=== PATIENT | female | born 1980 | race Caucasian/White ===

== ENCOUNTER 2017-05-30 10:20 | Emergency (ER) | payer BC, MEDICAID ==
--- NOTE | 2017-05-30 10:27 | EDM.PDOC ---
ED HPI GENERAL MEDICAL PROBLEM - General Chief Complaint: Chest Pain Stated Complaint: SOB Time Seen by Provider: 05/30/17 10:27 Source of Information: Reports: Patient, RN, RN Notes Reviewed History Limitations: Reports: No Limitations - History of Present Illness INITIAL COMMENTS - FREE TEXT/NARRATIVE: Arrives from home by POV with c/o of chest pain with shortness of breath and nausea that began early this morning. Pt states that she has severe anxiety with panic attacks which have been out of control recently due to new stress from a divorce, custody abel, move from out of critical access hospital to [facility], finances, and cannot get her insurance to cover her Abilify so she has been out for a long time. Pt states that she self medicates with alcohol almost daily in large quantities "more than most men can drink". She admits to depression, but denies ever feeling suicidal. She states that she has low potassium and it is slowly paralyzing her heart. Onset: Today Duration: Constant Location: Reports: Chest Quality: Reports: Ache, Pressure Severity: Severe Improves with: Reports: None Worsens with: Reports: None Associated Symptoms: Reports: No Other Symptoms Treatments [employer] SALES [employer]ATE: Reports: Other Medication(s) (Xanax) Left Mid-Sternal Chest Pain Score (Numeric/FACES): 10 - Related Data Allergies Allergy/AdvReac Type Severity Reaction Status Date / Time No Known Allergies Allergy Verified 06/24/14 17:43 Home Meds: Home Meds ALPRAZolam [Xanax] 3.5 mg PO PRN 06/24/14 [History] Fexofenadine HCl [Mucinex Allergy] 180 mg PO 06/24/14 [History] Past Medical History HEENT History: Reports: Allergic Rhinitis Psychiatric History: Reports: Addiction (Alcohol), Anxiety, Depression, Panic Attack Social & Family History - Family History Cardiac: Reports: [place] (sister in her 30s) Neurological: Reports: CVA (sister at age 22yrs) Psychiatric: Reports: Anxiety - Tobacco Use Smoking Status *Q: Current Every Day Smoker Tobacco Use Within Last Twelve Months: Cigarettes Years of Tobacco use: 1 Second Hand Smoke Exposure: No - Alcohol Use Alcohol Use History: Yes Days Per Week of Alcohol Use: 6 Days Per Week of Alcohol Use Comment: almost every day Number of Drinks Per Day: 8 Total Drinks Per Week: 48 Alcohol Use in Last Twelve Months: Yes Alcohol Use Frequency: Daily - Recreational Drug Use Recreational Drug Use: No - Living Situation & Occupation Living situation: Reports: , Alone Occupation: Employed ED ROS GENERAL - Review of Systems Review Of Systems: ROS reveals no pertinent complaints other than HPI. ED EXAM, GENERAL - Physical Exam Exam: See Below Exam Limited By: No Limitations General Appearance: Alert, WD/WN, No Apparent Distress, Anxious Eye Exam: Bilateral Eye: Normal Inspection Nose: Normal Inspection Throat/Mouth: Normal Inspection, Normal Voice, No Airway Compromise Head: Atraumatic, Normocephalic Neck: Normal Inspection, Supple, Non-Tender, Full Range of Motion Respiratory/Chest: No Respiratory Distress, Lungs Clear, Normal Breath Sounds, No Accessory Muscle Use, Chest Non-Tender Cardiovascular: Normal Peripheral Pulses, Regular Rate, Rhythm, No Edema, No Gallop, No JVD, No Murmur, No Rub GI/Abdominal: Normal Bowel Sounds, Soft, Non-Tender, No Distention, No Abnormal Bruit (Female) Exam: Deferred Rectal (Female) Exam: Deferred Back Exam: Normal Inspection Extremities: Normal Inspection, Normal Range of Motion, Non-Tender, Normal Capillary Refill, No Pedal Edema Neurological: Alert, Oriented, CN II-XII Intact, Normal Cognition, Normal Gait, No Motor/Sensory Deficits Psychiatric: Anxious, Depressed Mood, Other (denies ever having suicidal thoughts) Skin Exam: Warm, Dry, Intact, Normal Color, No Rash EKG INTERPRETATION EKG Date: 05/30/17 Rhythm: NSR [place]: Normal P-Wave: Present QRS: Normal ST-T: Normal QT: Normal Comparison: NA - No Prior EKG EKG Interpretation Comments: No acute ischemic changes. Course - Vital Signs Last Recorded V/S: Last Vital Signs Temp 36.9 C 05/30/17 12:30 Pulse 72 05/30/17 12:30 Resp 16 05/30/17 12:30 BP 110/70 05/30/17 12:30 Pulse Ox 98 05/30/17 12:30 - Orders/Labs/Meds Orders: Active Orders 24 hr Category Date Time Status EKG 12 Lead [EKG Documentation Completion] [RC] STAT Care 05/30/17 10:30 Active Chest 1V Frontal [CR] Stat Exams 05/30/17 10:27 Ordered CBC WITH AUTO DIFF [HEME] Stat Lab 05/30/17 10:27 Ordered COMPREHENSIVE METABOLIC PN,CMP [CHEM] Stat Lab 05/30/17 10:27 Ordered D Dimer [D-DIMER QUANTITATIVE] [COAG] Stat Lab 05/30/17 10:27 Ordered Nitroglycerin [Nitrostat] Med 05/30/17 10:40 Active 0.4 mg SL Q5M PRN Medication Orders Nitroglycerin (Nitrostat) 0.4 mg SL Q5M PRN PRN Reason: Chest Pain Last Admin: 05/30/17 10:55 Dose: 0.4 mg Labs: Laboratory Tests 05/30/17 05/30/17 05/30/17 Range/Units 10:42 10:42 10:42 WBC 5.5 (5.0-10.0) 10^3/uL RBC 4.18 L (4.2-5.4) 10^6/uL Hgb 13.8 D (12.0-16.0) g/dL Hct 39.3 (37.0-47.0) % MCV 94.0 (80-100) fL MCH 33.0 (27.0-34.0) pg MCHC 35.1 H (33.0-35.0) g/dL Plt Count 256 (150-450) 10^3/uL Neut % (Auto) 68.7 (42.2-75.2) % Lymph % (Auto) 22.3 (20.5-50.1) % [place] % (Auto) 7.8 (2-8) % Eos % (Auto) 0.5 L (1.0-3.0) % Baso % (Auto) 0.7 (0.0-1.0) % D-Dimer, Quantitative < 100 (0-400) ng/mL Sodium 139 (135-145) mmol/L Potassium 3.1 L (3.6-5.0) mmol/L Chloride 100 L (101-111) mmol/L Carbon Dioxide 26.0 (21.0-31.0) mmol/L Anion Gap 16.1 BUN 6 L (7-18) mg/dL Creatinine 0.6 (0.6-1.3) mg/dL Est Cr Clr Drug Dosing 132.86 mL/min Estimated GFR (MDRD) > 60 BUN/Creatinine Ratio 10.00 Glucose 92 (74-105) mg/dL Calcium 8.7 (8.4-10.2) mg/dl Magnesium 1.7 L (1.8-2.5) mg/dL Total Bilirubin 0.7 (0.2-1.0) mg/dL AST 28 (10-42) IU/L ALT 17 (10-60) IU/L Alkaline Phosphatase 78 (42-121) IU/L Troponin I < 0.02 (0.00-0.02) ng/ml Total Protein 7.0 (6.7-8.2) g/dl Albumin 3.9 (3.2-5.5) g/dl Globulin 3.1 Albumin/Globulin Ratio 1.26 Amylase 46 (28-100) U/L Lipase 23 (22-51) U/L Urine Color (YELLOW) Urine Appearance (CLEAR) Urine pH (5.0-9.0) Ur Specific [place] (1.005-1.030) Urine Protein (NEGATIVE) Urine Glucose (UA) (NEGATIVE) Urine Ketones (NEGATIVE) Urine Occult Blood (NEGATIVE) Urine Nitrite (NEGATIVE) Urine Bilirubin (NEGATIVE) Urine Urobilinogen (0.2-1.0) mg/dL Ur Leukocyte Esterase (NEGATIVE) Urine RBC /HPF Urine WBC (0-5/HPF) /HPF Ur Epithelial Cells /HPF Amorphous Sediment (0/HPF) /HPF Urine Bacteria (0-FEW/HPF) /HPF Urine Mucus /LPF Urine HCG, Qual Urine Opiates Screen (NEGATIVE) Ur Oxycodone Screen (NEGATIVE) Urine Methadone Screen (NEGATIVE) Ur Barbiturates Screen (NEGATIVE) U Tricyclic Antidepress (NEGATIVE) Ur Phencyclidine Scrn (NEGATIVE) Ur Amphetamine Screen (NEGATIVE) U Methamphetamines Scrn (NEGATIVE) Urine MDMA Screen (NEGATIVE) U Benzodiazepines Scrn (NEGATIVE) Urine Cocaine Screen (NEGATIVE) U Marijuana (THC) Screen (NEGATIVE) Ethyl Alcohol 54 mg/dL 05/30/17 05/30/17 05/30/17 Range/Units 11:50 11:50 11:50 WBC (5.0-10.0) 10^3/uL RBC (4.2-5.4) 10^6/uL Hgb (12.0-16.0) g/dL Hct (37.0-47.0) % MCV (80-100) fL MCH (27.0-34.0) pg MCHC (33.0-35.0) g/dL Plt Count (150-450) 10^3/uL Neut % (Auto) (42.2-75.2) % Lymph % (Auto) (20.5-50.1) % [place] % (Auto) (2-8) % Eos % (Auto) (1.0-3.0) % Baso % (Auto) (0.0-1.0) % D-Dimer, Quantitative (0-400) ng/mL Sodium (135-145) mmol/L Potassium (3.6-5.0) mmol/L Chloride (101-111) mmol/L Carbon Dioxide (21.0-31.0) mmol/L Anion Gap BUN (7-18) mg/dL Creatinine (0.6-1.3) mg/dL Est Cr Clr Drug Dosing mL/min Estimated GFR (MDRD) BUN/Creatinine Ratio Glucose (74-105) mg/dL Calcium (8.4-10.2) mg/dl Magnesium (1.8-2.5) mg/dL Total Bilirubin (0.2-1.0) mg/dL AST (10-42) IU/L ALT (10-60) IU/L Alkaline Phosphatase (42-121) IU/L Troponin I (0.00-0.02) ng/ml Total Protein (6.7-8.2) g/dl Albumin (3.2-5.5) g/dl Globulin Albumin/Globulin Ratio Amylase (28-100) U/L Lipase (22-51) U/L Urine Color Yellow (YELLOW) Urine Appearance Slightly cloudy (CLEAR) Urine pH 7.0 (5.0-9.0) Ur Specific [place] 1.020 (1.005-1.030) Urine Protein Negative (NEGATIVE) Urine Glucose (UA) Negative (NEGATIVE) Urine Ketones Negative (NEGATIVE) Urine Occult Blood Negative (NEGATIVE) Urine Nitrite Negative (NEGATIVE) Urine Bilirubin Negative (NEGATIVE) Urine Urobilinogen 0.2 (0.2-1.0) mg/dL Ur Leukocyte Esterase Negative (NEGATIVE) Urine RBC 0-5 /HPF Urine WBC 0-5 (0-5/HPF) /HPF Ur Epithelial Cells Few /HPF Amorphous Sediment Rare (0/HPF) /HPF Urine Bacteria Few (0-FEW/HPF) /HPF Urine Mucus Moderate H /LPF Urine HCG, Qual Negative Urine Opiates Screen Negative (NEGATIVE) Ur Oxycodone Screen Negative (NEGATIVE) Urine Methadone Screen Negative (NEGATIVE) Ur Barbiturates Screen Negative (NEGATIVE) U Tricyclic Antidepress Negative (NEGATIVE) Ur Phencyclidine Scrn Negative (NEGATIVE) Ur Amphetamine Screen Negative (NEGATIVE) U Methamphetamines Scrn Negative (NEGATIVE) Urine MDMA Screen Negative (NEGATIVE) U Benzodiazepines Scrn Positive H (NEGATIVE) Urine Cocaine Screen Negative (NEGATIVE) U Marijuana (THC) Screen Negative (NEGATIVE) Ethyl Alcohol mg/dL Meds: Medications Generic Name Dose Route Start Last Admin Trade Name Freq PRN Reason Stop Dose Admin Nitroglycerin 0.4 mg 05/30/17 10:40 05/30/17 10:55 Nitrostat SL 0.4 mg Q5M PRN Administration Chest Pain Discontinued Medications Generic Name Dose Route Start Last Admin Trade Name Freq PRN Reason Stop Dose Admin Aspirin 324 mg 05/30/17 10:29 05/30/17 10:53 Aspirin PO 05/30/17 10:30 324 mg ONETIME ONE Administration Lorazepam 1 mg 05/30/17 10:46 05/30/17 11:13 Ativan IVPUSH 05/30/17 10:47 1 mg ONETIME ONE Administration Ondansetron HCl 4 mg 05/30/17 10:40 05/30/17 10:50 Zofran IV 05/30/17 10:41 4 mg ONETIME ONE Administration - Radiology Interpretation Free Text/Narrative:: CXR: no acute process per Rad report. Departure - Departure Time of Disposition: 12:17 Disposition: Home, Self-Care 01 Condition: Good Clinical Impression: Non-cardiac chest pain, Severe anxiety with panic, Chronic alcohol abuse Depression Qualifiers: Depression Type: other depression Qualified Code(s): F32.89 - Other specified depressive episodes Instructions: Nonspecific Chest Pain, [id number], Panic Attacks, Potassium Content of Foods Referrals: PCP,None [Primary Care Provider] - Forms: ED Department Discharge Additional Instructions: Follow up with your psychiatrist at the first available appointment. Follow up Dr. Richard as soon as possible to establish local primary care. Attempt to taper and abstain from alcohol use. Eat a high potassium diet. Rx: Clonazapam 1mg - My Orders Last 24 Hours: My Active Orders 05/30/17 10:27 Chest 1V Frontal [CR] Stat CBC WITH AUTO DIFF [HEME] Stat COMPREHENSIVE METABOLIC PN,CMP [CHEM] Stat D Dimer [D-DIMER QUANTITATIVE] [COAG] Stat 05/30/17 10:30 EKG 12 Lead [EKG Documentation Completion] [RC] STAT 05/30/17 10:40 Nitroglycerin [Nitrostat] 0.4 mg SL Q5M PRN - Assessment/Plan Last 24 Hours: My Active Orders 05/30/17 10:27 Chest 1V Frontal [CR] Stat CBC WITH AUTO DIFF [HEME] Stat COMPREHENSIVE METABOLIC PN,CMP [CHEM] Stat D Dimer [D-DIMER QUANTITATIVE] [COAG] Stat 05/30/17 10:30 EKG 12 Lead [EKG Documentation Completion] [RC] STAT 05/30/17 10:40 Nitroglycerin [Nitrostat] 0.4 mg SL Q5M PRN
[2017-05-30] MEDS ORDERED: Aspirin 81 MG Tab.Chew PO ONE (10:29)
[2017-05-30] MEDS ORDERED: Ondansetron 4 MG/2 ML SDV IV ONE (10:40)
[2017-05-30] MEDS ORDERED: Nitroglycerin 0.4 MG Tab.SL SL PRN (10:40)
[2017-05-30] MEDS ORDERED: LORazepam 2 MG/ML Syringe IVPUSH ONE (10:46)
--- NOTE | 2017-05-30 10:46 | CR ---
Clinical history: 36-year-old female chest pain. Interpretation: No acute cardiopulmonary abnormality. Normal cardiac silhouette and bony thorax. No alveolar edema or dependent effusion. No lung mass, hilar lymphadenopathy or focal lobar pneumonia. No atelectasis/collapse. No pneumothorax.
[2017-05-30 11:11] LABS: CHLORIDE,CL 100 mmol/L (101-111); SODIUM,NA 139 mmol/L (135-145)
[2017-05-30 14:31] VITALS: BP 110/70
--- NOTE | 2017-06-02 14:31 | EKG ---
05/30/2017 - JULIETA ESPINAL - FINDINGS: This 12-lead EKG shows a normal sinus rhythm with a ventricular rate of 62. Normal axis and intervals. No acute ST-segment or T-wave changes. [facility] /[id number]
== END 2017-05-30 12:42 | disposition home or self-care (01) ==
LOC: DL.ED 10:20
DX: F41.0 Panic disorder [episodic paroxysmal anxiety] (principal); R07.89 Other chest pain; F10.10 Alcohol abuse, uncomplicated; Y90.2 Blood alcohol level of 40-59 mg/100 ml; F32.89 Other specified depressive episodes; F17.210 Nicotine dependence, cigarettes, uncomplicated; Z79.899 Other long term (current) drug therapy
CPT/HCPCS: 36415; 71045; 80053; 80305; 81001; 81025; 82150; 83690; 83735; 84484; 85025; 85379; 93005; 96374; 96375; 99285; A9270; G0480; J2060; J2405; 93010